=== PATIENT | female | born 1975 ===

== ENCOUNTER 2017-03-19 11:07 | Emergency (ER) | payer SELFPAY ==
[2017-03-19 12:22] LABS: RBC URINE 4 /hpf (0-3); URINE BACTERIA RARE (<OCC); URINE BILIRUBIN NEGATIVE (NEGATIVE); URINE BLOOD NEGATIVE (NEGATIVE); URINE COLOR Yellow (YELLOW); URINE GLUCOSE (UA) NORMAL (Normal); URINE KETONE NEGATIVE (NEGATIVE); URINE LEUKOCYTE ESTERASE NEG Leu/uL (Negative); URINE PROTEIN 1+ mg/dL (NEGATIVE); URINE UROBILINOGEN NORMAL mg/dL (0.2-1.0); WBC URINE 3 /hpf (0-5)
--- NOTE | 2017-04-07 01:40 | OBHP ---
Datetime: 04/06/2017 21:42 IP Adm Impression: , intrauterine IP Chief Complaint Other: Pelvic pressure IP Admit Plan: Observation/Evaluation Admit Comment, IP Provider: 42y.o. , LMP unsure, JAXSON 05/21/17, EGA 33w 4d c/o vaginal pressure s gay 12 noon, pain scale 7/10 to 8/10. DeniesGU symptoms. last had sexual intercourse "months ago" (+ ) AFM; denies LOF, VB, Ctx. [facility] care: [facility]; last visit 04/04/17; denies any issues, however, has not had glucose screening as yet. P OB: 1997, x 1 at "8 months", female, 6 lb, [place]; denies GDM or any issues P [employer]: 13 x monthly x 4. Denies STI or abnormal Pap PMH: Sjorgen syndrome PSH: denies NKDA Meds: PNV and folic acid - each, QD Soc Hx: denies tobacco, illicit drug or EtOH use. With FOB x 1 1/2 yrs; lives wiht him and her son . Fam Hx: Mother alive 63 y.o. no med issues. Father - renal failure. Paternal grand- aunt - breast cancer P.E.: as above. WD, small in NAD. Awake, alert, oriented to time, person and place. Pleasant and cooperative Assessment: 42 y.o. P1, 33w 4d, uterine contractions. Category 1 tracing. Clinically sta ble. Plan: 1) U/A 2) IVFs 3) Observe 4) Re-examine Addendum: 0030 hours - U/A reviewed: noted for glucose 1+, leuk esterase neg; blood 1+. S.G. 1.012, pH 6.0 -P atient states feels much better; anxious to go home as 18 y..o. son does not have a de la cruz to get into the house. - [place]: no contractions noted - repeat cervical exam - no change in cervical dilatation; presenting part at no longer engaged. Assessment: 42 y.o. P1, no cervical dilatation after IVFs and bed rest. In light of patient report ing not having performed GCT and 1+ glucose in urine at 33+ weeks, patient counseled on need to be se en tihs 04/11/17 for 1 hr GCT, and not the 2 weeks F/U she states she has. Patient expressed an understanding and agrees to do so. Patient also encouraged to increase p.o. intake of water. Cat egory 1 tracing. Clinically stable. Plan: 1) Discharge home 2) reviewed S/S PTL Pelvic Type - PN: Adequate Extremities - PN: Normal Abdomen - PN: Normal Back - PN: Normal Breast - PN: Not Done Lungs - PN: Normal Heart - PN: Normal Thyroid - PN: Not Done Neurologic - PN: Normal HEENT - PN: Normal General - PN: Normal FHR - Baseline A Provider: 145 Contraction Comments Provider: 2-4 mnutes Comments, ACOG Physical Exam: Abdomen: gravid. Soft. non tender inall quadrants All other systems reviewed and are negative Gestation - Est Wks by US: 33w 4d EGA AdmitDate IP: 33.4 Vital Signs Provider: Reviewed IP Chief Complaint: Other NICHD Variability Prov Fetus A: Moderate 6-25bpm NICHD Accel Fetus A IP Provider: 10X10 FHR Category Provider Fetus A: Category I NICHD Decel Fetus A IP Provider: None Dilatation, Provider: FT Effacement, Provider: 40 Station, Provider: -2 Genitourinary Exam: Normal DTRs - PN: Not Done
== END 2017-03-19 12:00 | disposition home or self-care (01) ==
LOC: C.EROB 11:07
DX: O26.893 Other specified pregnancy related conditions, third trimester (principal); Z3A.29 29 weeks gestation of pregnancy; R51 Headache; M35.00 Sjogren syndrome, unspecified